=== PATIENT | male | born 1995 | race Caucasian/White ===

== ENCOUNTER 2018-07-16 10:06 | Emergency (ER) | payer OTHER ==
[~2018-07-16] VITALS: Ht 175.3 cm; Wt 81.7 kg
[~2018-07-16 10:06] MED LIST: NOHOMEMEDICATIONS; ZOFRAN ODT4 MG PO
[2018-07-16 10:08] VITALS: BP 138/79
== END 2018-07-16 11:00 | disposition home or self-care (01) ==
LOC: ER 10:06
DX: S01.01XA Laceration without foreign body of scalp, initial encounter (principal); W22.8XXA Striking against or struck by other objects, initial encounter; Y93.89 Activity, other specified; Y92.411 Interstate highway as the place of occurrence of the external cause; Y99.0 Civilian activity done for income or pay